=== PATIENT | female | born 1980 | race Hispanic/Latino ===

== ENCOUNTER 2019-05-31 19:44 | Emergency (ER) | payer SELFPAY ==
[~2019-05-31] VITALS: Ht 152.4 cm; Wt 88.5 kg
[2019-05-31] MEDS ORDERED: BUPIVACAINE/EPINEPHRINE 0.25% 10 ML SDV INJ ONE (22:22)
[2019-05-31] MEDS ORDERED: LIDOCAINE HCL 1% LOCAL INJ 20 ML VIAL ONE (22:22)
--- NOTE | 2019-05-31 22:50 | NUR ---
NAIL REMOVAL SUPPLIES PLACED IN ROOM 4 PER MD REQUEST.
[2019-06-01] MEDS ORDERED: BACTRIM DS TAB1 EACH PO (00:20)
[2019-06-01] MEDS ORDERED: NEOMYCIN/POLYMYX/BACITR OINT 0.9 GM PKT ONE (00:24)
[2019-06-01] MEDS ORDERED: NEOMYCIN/POLYMYX/BACITR OINT 0.9 GM PKT TOP ONE (00:30)
[2019-06-01] MEDS ORDERED: BUPIVACAINE 0.5%/EPI 30 ML SDV INJ ONE (00:30)
[2019-06-01] MEDS ORDERED: LIDOCAINE HCL 1% LOCAL INJ 20 ML VIAL INJ ONE (00:30)
[2019-06-01 00:54] VITALS: BP 132/80
== END 2019-06-01 00:56 | disposition home or self-care (01) ==
LOC: FSED 19:44
DX: M79.675 Pain in left toe(s) (principal); L60.0 Ingrowing nail
CPT/HCPCS: 11730; 99283; J2001